=== PATIENT | female | born 1960 | race Caucasian/White ===

== ENCOUNTER → 2016-08-22 | Outpatient (CLI) | payer BC ==
[~2016-08-22] MED LIST: ATARAX PO; ATOR40TA78 PO; Atarax PO; CELE50CA PO; L-Thyroxine PO; LEVO175T5 PO; LIDO700A5 TD; OMEG1CAP2 PO; OMEP20TA62 PO; OXYC-229 PO; OXYC-302 PO; OXYC30TA66 PO; PRAM0.125 PO; PRAM0.5T5 PO; Premarin Cream VG; URSODIOL PO
== END | disposition home or self-care (01) ==
LOC: STAR 12:52
PROVIDERS: ATTEND Orthopaedic Surgery
DX: Z02.9 Encounter for administrative examinations, unspecified (principal)

== ENCOUNTER 2016-09-23 22:23 | Emergency (ER) | payer BC ==
[~2016-09-23] VITALS: Ht 165.1 cm; Wt 72.3 kg
[2016-09-23] MEDS ORDERED: OXYcodone/APAP 5/325MG TABLET ONE (23:13)
[2016-09-23] MEDS ORDERED: ONDANSETRON ODT 4 MG ONE (23:14)
[2016-09-23] MEDS ORDERED: OXYcodone/APAP 5/325MG TABLET PO ONE (23:30)
[2016-09-23] MEDS ORDERED: ONDANSETRON ODT 4 MG PO ONE (23:30)
[2016-09-23] MEDS ORDERED: SODIUM CHLORIDE FLUSH 10ML SYR IVF ONE (23:30)
[2016-09-24 00:13] LABS: BLOOD UREA NITROGEN 10 mg/dL (7-18)
[2016-09-24 00:52] VITALS: BP 121/70
[2016-09-24] MEDS ORDERED: OMNIPAQUE 350 MG/ML, 100ML BOTTLE ONE (04:57)
== END 2016-09-24 01:56 | disposition home or self-care (01) ==
LOC: ED 09-24 01:47
DX: K02.9 Dental caries, unspecified (principal); K08.89 Other specified disorders of teeth and supporting structures
CPT/HCPCS: 36415; 70491; 80048; 82040; 85025; 99285; Q0162; Q9967

== ENCOUNTER 2017-09-25 03:07 | Emergency (ER) | payer BC, OTHER ==
[~2017-09-25] VITALS: Ht 162.6 cm; Wt 55.0 kg
[~2017-09-25 03:07] MED LIST changes: -OXYC-229 PO; +OXYC-307 PO
[2017-09-25 03:09] VITALS: BP 125/78
== END 2017-09-25 04:48 | disposition home or self-care (01) ==
LOC: ED 04:40
DX: S62.525A Nondisplaced fracture of distal phalanx of left thumb, initial encounter for closed fracture (principal); Z88.1 Allergy status to other antibiotic agents; Z88.8 Allergy status to other drugs, medicaments and biological substances; X50.1XXA Overexertion from prolonged static or awkward postures, initial encounter; Y93.89 Activity, other specified; Y92.89 Other specified places as the place of occurrence of the external cause; Y99.8 Other external cause status
CPT/HCPCS: 29125; 99284

== ENCOUNTER 2018-01-15 01:55 | Emergency (ER) | payer BC, OTHER ==
[~2018-01-15] VITALS: Ht 162.6 cm; Wt 55.0 kg
[2018-01-15 02:05] VITALS: BP 135/84
[2018-01-15] MEDS ORDERED: DIPH,PERTUSS(ACELL),TET VAC/PF 0.5 ML IM-VACC ONE ×2 (02:47→03:00)
== END 2018-01-15 03:21 | disposition home or self-care (01) ==
LOC: ED 03:11
DX: L03.211 Cellulitis of face (principal)
CPT/HCPCS: 90471; 90715; 99283

== ENCOUNTER 2018-02-20 02:11 | Emergency (ER) | payer BC ==
[~2018-02-20] VITALS: Ht 162.6 cm; Wt 62.0 kg
[2018-02-20 02:49] LABS: BASOPHILS # (AUTO) 0.04 x10^3/uL (0-0.1); BASOPHILS % (AUTO) 1 % (0-1); EOSINOPHILS # (AUTO) 0.09 x10^3/uL (0-0.4); EOSINOPHILS % (AUTO) 2 % (1-7); LYMPHOCYTES % (AUTO) 44 % (22-44); MD NO; MEAN CORPUSCULAR HEMOGLOBIN 29.7 pg (27.0-34.8); MEAN CORPUSCULAR HGB CONC 34.4 g/dL (32.4-35.8); MEAN CORPUSCULAR VOLUME 86.3 fL (80-100); MEAN PLATELET VOLUME 7.1 fL (7.4-10.4); MONOCYTES % (AUTO) 9 % (2-9); NEUTROPHILS % (AUTO) 44 % (42-75); PLATELET COUNT 318 x10^3/uL (130-400); RED BLOOD COUNT 4.32 x10^6/uL (3.82-5.3); RED CELL DISTRIBUTION WIDTH 13.7 % (9.6-15.2)
[2018-02-20 03:02] LABS: ALBUMIN 3.7 g/dL (3.4-5.0); ANION GAP 12 mmol/L (5-15); CALCIUM 8.9 mg/dL (8.5-10.1); CHLORIDE 105 mmol/L (98-107); CREATININE 1.03 mg/dL (0.55-1.02)
[2018-02-20 03:05] LABS: TROPONIN I < 0.015 ng/mL (0.000-0.045)
[2018-02-20] MEDS ORDERED: OXYcodone/APAP 5/325MG TABLET ONE (04:19)
[2018-02-20] MEDS ORDERED: OXYcodone/APAP 5/325MG TABLET PO ONE (04:30)
[2018-02-20 06:02] LABS: TROPONIN I < 0.015 ng/mL (0.000-0.045)
[2018-02-20 06:18] VITALS: BP 95/58
== END 2018-02-20 06:35 | disposition home or self-care (01) ==
LOC: ED 03:01
DX: R07.9 Chest pain, unspecified (principal)
CPT/HCPCS: 36415; 71045; 80048; 82040; 84484; 85025; 93005; 99285

== ENCOUNTER 2020-02-21 08:29 | Inpatient (IN) | payer OTHER ==
[~2020-02-21] VITALS: Ht 162.6 cm; Wt 68.1 kg
[~2020-02-21 08:29] MED LIST changes: +LEVO200T5 PO; +MORPHINE PO; +PRAM1TAB5 PO; +RIVA15TA PO; +RIVA20TA PO; +SENN1TAB94 PO
[2020-02-21] MEDS ORDERED: SODIUM CHLORIDE FLUSH 10ML SYR IVF ONE (09:00)
--- NOTE | 2020-02-21 09:04 | NUR ---
20 G IV STARTED IN RIGHT HAND, BLOOD SENT TO LAB
[2020-02-21] MEDS ORDERED: ONDANSETRON 2MG/ML, 2ML ONE (09:05)
--- NOTE | 2020-02-21 09:10 | NUR ---
RECENT ADMIT FOR PE'S, TAKING XARELTO. KARRI BEEN COUGHING UP BLOOD, HEAVY BREATHING AND CHEST PAIN. PT WAS JUST DISCHARGED FROM HOSPITAL FOR PE. PT NOW HAVING WORSE CHEST PAIN, LEFT UPPER CHEST, IN RIGHT AND LEFT LOWER LUNGS AND HER BACK. PT NOW IN BED WITH CONT [employer] CUTTER, SPO2, BP Q 30 MIN, SIDE RAILS UP X2, CALL LIGHT IN REACH. PT'S AT BEDSIDE. PT TALKATIVE, TALKING IN COMPLEAT SENTENCES. WENT OVER PLAN OF CARE FROM ORDER LIST, AGREES TO PLAN OF CARE.
--- NOTE | 2020-02-21 09:16 | NUR ---
PT HAS A WHITE MASK ON, PT HAS BEEN COUGHING EXEXESSIVELY. NO BLOOD NOTED.
--- NOTE | 2020-02-21 09:17 | NUR ---
NAUSEA IS BETTER PER PATIENT
[2020-02-21] MEDS ORDERED: ONDANSETRON 2MG/ML, 2ML IVPush ONE (09:30)
--- NOTE | 2020-02-21 09:32 | NUR ---
report received from [facility].
--- NOTE | 2020-02-21 09:39 | NUR ---
LAB IN ROOM FOR REDRAW. PT WAS SLEEPING SPO2 WENT TO 56%, WALKED IN ROOM WOKE PT UP, PUT ON 2L NC, PT NOW AT 100%. PT REPORTS BEING NARCOLEPTIC AND HAVING SLEEP APNEA AND HAVING HER O2 IN THE 80s WHEN SHE SLEEPS.
[2020-02-21 09:42] LABS: BASOPHILS # (AUTO) 0.04 x10^3/uL (0-0.1); BASOPHILS % (AUTO) 1 % (0-1); EOSINOPHILS # (AUTO) 0.13 x10^3/uL (0-0.4); EOSINOPHILS % (AUTO) 3 % (1-7); LYMPHOCYTES # (AUTO) 1.71 x10^3/uL (1-3.4); LYMPHOCYTES % (AUTO) 32 % (22-44); MD SCAN; MEAN CORPUSCULAR HEMOGLOBIN 29.2 pg (27.0-34.8); MEAN CORPUSCULAR HGB CONC 32.7 g/dL (32.4-35.8); MEAN PLATELET VOLUME 7.6 fL (7.4-10.4); MONOCYTES # (AUTO) 0.34 x10^3/uL (0.2-0.8); MONOCYTES % (AUTO) 7 % (2-9); NEUTROPHILS # (AUTO) 3.05 x10^3/uL (1.8-6.8); NEUTROPHILS % (AUTO) 58 % (42-75); PLATELET COUNT 310 x10^3/uL (130-400); RED BLOOD COUNT 4.74 x10^6/uL (3.82-5.3); RED CELL DISTRIBUTION WIDTH 12.6 % (9.6-15.2)
[2020-02-21 09:52] LABS: ALBUMIN 3.4 g/dL (3.4-5.0); ANION GAP 8 mmol/L (5-15); CALCIUM 9.6 mg/dL (8.5-10.1); CHLORIDE 106 mmol/L (98-107); CREATININE 0.88 mg/dL (0.55-1.02)
[2020-02-21 09:56] LABS: TROPONIN I < 0.015 ng/mL (0.000-0.045)
--- NOTE | 2020-02-21 10:00 | NUR ---
pt in room 16 at this time. warm blanket provided per request. pt's aox4. resps even and unlabored. call light within reach. rails up x 2.
[2020-02-21] MEDS ORDERED: MORPHINE SULFATE 4 MG/ML, 1ML IVPush STA (10:08)
[2020-02-21] MEDS ORDERED: MORPHINE SULFATE 4 MG/ML, 1ML ONE (10:14)
--- NOTE | 2020-02-21 10:15 | NUR ---
PT MEDICATED PER EMAR. PT TOLERATED WELL.
--- NOTE | 2020-02-21 10:45 | NUR ---
edmd at bedside explaining all results at this time.
[2020-02-21] MEDS ORDERED: SODIUM CHLORIDE 0.9% 1,000 ML IV STA (10:52)
--- NOTE | 2020-02-21 10:56 | NUR ---
NS INFUSING AT THIS TIME. PT TOLERATED WELL. PT'S AOX4. RESPS EVEN AND UNLABORED. PT DENIES ANY NEEDS OR CONCERNS AT THIS TIME.
[2020-02-21] MEDS: SODIUM CHLORIDE 0.9% 1,000 ML IV SCH ×2 (11:30→12:30)
--- NOTE | 2020-02-21 11:47 | NUR ---
TASK RN: WHILE PT SLEEPS HER O2 SATURATION DROPS TO THE HIGH 70S. PT TO BE ADMITTED. PT EDUCATED ON PLAN OF CARE
[2020-02-21] MEDS ORDERED: SODIUM CHLORIDE 0.9% 1,000 ML IV SCH (12:11)
--- NOTE | 2020-02-21 12:13 | NUR ---
HOSPITALIST AT BEDSIDE AT THIS TIME.
[2020-02-21] MEDS ORDERED: ONDANSETRON 2MG/ML, 2ML IVPush PRN (12:30)
[2020-02-21] MEDS ORDERED: ACETAMINOPHEN 325 MG TABLET PO PRN (12:30)
[2020-02-21] MEDS ORDERED: ONDANSETRON ODT 4 MG PO PRN (12:30)
[2020-02-21] MEDS ORDERED: OXYcodone/APAP 10/325MG TABLET PO PRN (12:30)
[2020-02-21] MEDS ORDERED: [UNRECOGNIZED DRUG - OTHER] PO SCH (12:30)
[2020-02-21] MEDS ORDERED: GUAIFENESIN/DM 200-20MG, 10ML UDC PO PRN (12:30)
--- NOTE | 2020-02-21 12:41 | NUR ---
PT AMB TO BR WITH STEADY GAIT.
--- NOTE | 2020-02-21 12:50 | NUR ---
NS INFUSING AT THIS TIME. PT TOLERATED WELL. PT'S AOX4. RESPS EVEN AND UNLABORED. EXTRA WARM BLANKET GIVEN PER REQUEST.
--- NOTE | 2020-02-21 13:15 | NUR ---
report given to [facility]. all questions answered.
[2020-02-21 13:53] VITALS: BP 103/68
[2020-02-21] MEDS ORDERED: RIVAROXABAN 20 MG TABLET PO SCH (17:00)
[2020-02-21] MEDS ORDERED: SENNA/DOCUSATE TABLET PO SCH (21:00)
[2020-02-21] MEDS ORDERED: CELECOXIB PO SCH (21:00)
[2020-02-22] MEDS ORDERED: LEVOTHYROXINE 200 MCG TABLET PO SCH ×2 (06:00→09:00)
[2020-02-22] MEDS ORDERED: RIVAROXABAN 20 MG TABLET PO SCH (09:00)
[2020-02-22] MEDS ORDERED: OMEGA-3/FISH OIL CAPSULE PO SCH (09:00)
[2020-02-22] MEDS ORDERED: OMEPRAZOLE 20 MG CAPSULE.DR PO SCH (09:00)
[2020-02-22] MEDS ORDERED: PRAMIPEXOLE 0.5MG TABLET PO SCH (09:00)
== END 2020-02-21 15:27 | disposition left against medical advice (07) | DRG 204 ==
LOC: ED 09:07 → EDIP 11:34 → 4WST 13:43
PROVIDERS: ADMIT Family Medicine; ATTEND Family Medicine
DX: R04.2 Hemoptysis (principal); Z53.29 Procedure and treatment not carried out because of patient's decision for other reasons; G89.4 Chronic pain syndrome; G25.81 Restless legs syndrome; E78.5 Hyperlipidemia, unspecified; R09.02 Hypoxemia; Z90.710 Acquired absence of both cervix and uterus; Z90.49 Acquired absence of other specified parts of digestive tract; Z88.8 Allergy status to other drugs, medicaments and biological substances; K21.9 Gastro-esophageal reflux disease without esophagitis; Z83.3 Family history of diabetes mellitus; Z82.49 Family history of ischemic heart disease and other diseases of the circulatory system; R06.02 Shortness of breath; Z85.41 Personal history of malignant neoplasm of cervix uteri; G47.30 Sleep apnea, unspecified
CPT/HCPCS: 36415; 71045; 80048; 82040; 84484; 85025; 93005; 96374; 96375; 99285; G0378; J2405; J2270; J7030